=== PATIENT | female | born 1990 | race Hispanic/Latino ===

== ENCOUNTER 2018-09-10 12:05 | Day surgery (SDC) | payer BC ==
[2018-09-10 13:02] VITALS: BMI 31.2
--- NOTE | 2018-09-10 13:27 | PDOC.LDHP ---
Labor and Delivery H&P Chief complaint: other (pink mucus) HPI: 28 y/o at 40w3d, patient of Dr. Virgen, presents with pink tinged mucus this morning. Denies heavy VB, LOF, ctx, or decreased FM. ROS neg for HEENT, CV, pulm, GI, , neuro, psych, skin, musculoskeletal, or constitutional symptoms other than mentioned above. OB History Details: 2 prior term SVDs Current complications: other (ITP) Past Medical History: None Current medications: pre- vitamins, other (Prednisone) Previous surgical history: none Allergies/Adverse Reactions: Allergies Allergy/AdvReac Type Severity Reaction Status Date / Time No Known Allergies Allergy Verified 09/10/18 12:49 Social history: none - Physical Exam Vital signs reviewed and normal: yes General: NAD, resting Lungs: nonlabored breathing Abdomen: gravid Extremeties: no edema FHT: category 1 (130s, mod variability, + accels, no decels) [place] contractions every: 8-10 mins - Vaginal Exam cm dilated: 2 Effacement: 75% Station: -3 - Assessment 28 y/o at 40w3d with no e/o active labor. status reassuring with reactive NST. - Plan -: D/c home with precautions. Advised to keep all appointments and keep induction scheduled for Sunday.
== END 2018-09-10 13:51 | disposition home health service (06) ==
LOC: L&D/OP 12:05
PROVIDERS: ATTEND Obstetrics & Gynecology
DX: O99.89 Other specified diseases and conditions complicating pregnancy, childbirth and the puerperium (principal); N89.8 Other specified noninflammatory disorders of vagina; Z79.52 Long term (current) use of systemic steroids; Z79.899 Other long term (current) drug therapy; Z3A.40 40 weeks gestation of pregnancy
CPT/HCPCS: 99282

== ENCOUNTER 2018-09-11 11:26 | Inpatient (IN) | payer BC ==
[2018-09-11] MEDS ORDERED: Ibuprofen 800 MG TAB PO PRN (12:01)
[2018-09-11] MEDS ORDERED: Butorphanol Tartrate 1 MG/ML VIAL SLOW IVP PRN (12:01)
[2018-09-11] MEDS ORDERED: Methylergonovine 0.2 MG/ML VIAL IM PRN (12:01)
[2018-09-11] MEDS ORDERED: Ondansetron PF 4 MG/2 ML Vial IVP PRN (12:01)
[2018-09-11] MEDS ORDERED: Lidocaine 1% (PF) 30 ML VIAL SC PRN (12:01)
[2018-09-11] MEDS ORDERED: Carboprost 250 MCG/ML AMP IM PRN (12:01)
[2018-09-11] MEDS ORDERED: Acetaminophen 500 MG TAB PO PRN (12:01)
[2018-09-11] MEDS ORDERED: NS / Oxytocin 40 units/1000ml 1,000 ML IV PRN (12:01)
[2018-09-11] MEDS ORDERED: HYDROcodone/Acetaminophen 5/325 mg Tablet PO PRN ×2 (12:01→18:19)
[2018-09-11] MEDS ORDERED: Promethazine HCl 25 MG/ML VIAL IM PRN (12:01)
[2018-09-11] MEDS ORDERED: Diphenoxylate HCl/Atropine Tablet PO PRN (12:01)
[2018-09-11] MEDS ORDERED: Misoprostol 200 MCG TAB PR PRN (12:01)
[2018-09-11] MEDS ORDERED: Lactated Ringer's 1,000 ML IV SCH (12:15)
[2018-09-11 12:17] VITALS: BMI 32.9
[2018-09-11 12:48] LABS: Hemoglobin 15.2 g/dL (12.0-16.0); Mean Corpuscular HGB CONC 34.3 g/dL (32.0-36.0); Mean Corpuscular Hemoglobin 33.8 pg (27.0-31.0); Mean Corpuscular Volume 98.3 fL (78.0-98.0); Mean Platelet Volume 12.2 fL (7.4-10.4); Platelet Count 90 thou/uL (130-400); RBC Distribution Width 12.4 % (11.5-14.5); Red Blood Cell (RBC) Count 4.49 mill/uL (4.20-5.40); White Blood Cell (WBC) Count 6.6 thou/uL (4.8-10.8)
[2018-09-11 12:57] LABS: HBSAg Index 0.18 S/CO (0-0.99); HIV (1/2) Antibody/Antigen Non-Reactive (NonReactive); HIV 1/2 INDEX 0.04 S/CO (<1.00); Hep B Surf Ag Non-Reactive S/CO (NonReactive); Syphilis Antibody Nonreactive (Nonreactive); Syphilis Antibody Index 0.04 S/CO (<1.00 Non-Reactive)
[2018-09-11] MEDS ORDERED: Hydrocortisone Sod Succ/PF 100 mg/2 ml Vial ONE (13:29)
[2018-09-11] MEDS: Hydrocortisone Sod Succ/PF 100 mg/2 ml Vial IVP SCH ×2 (13:31→21:58)
--- NOTE | 2018-09-11 15:19 | PDOC.LDHP ---
Labor and Delivery H&P Chief complaint: contractions HPI: 28 yo @ 40w4d who presents in active labor. Anteparum course complicated by thrombocytopenia, presumed gestational vs ITP. On prednisone for thrombocytopenia. No LOF, VB. Current gestational age (weeks): 40 Due date: 09/07/18 Dating criteria: first trimester ultrasound Grav: 3 Para: 2 OB History Details: 2 term SVDs Current complications: other (Thrombocytopenia) Abnormal US findings: No Past Medical History: Denies Current medications: pre-delmi vitamins, other (Prednisone 40 mg QD) Previous surgical history: none Allergies/Adverse Reactions: Allergies Allergy/AdvReac Type Severity Reaction Status Date / Time No Known Allergies Allergy Verified 09/10/18 12:49 - Physical Exam Vital signs reviewed and normal: yes General: NAD Heart: RRR Lungs: nonlabored breathing Abdomen: gravid Extremeties: no edema FHT: category 1 [place] contractions every: q3-4 min - Vaginal Exam cm dilated: 7 (AROM scant clear fluid, cephalic ) Effacement: 90% Station: -1 - OB Labs Blood type: O RH: positive Antibody Screen: negative HIV: negative RPR: negative HEPSAg: negative 1 hour GCT: positive 3 hour GTT: wnl GBS: negative Urine drug screen: negative Rubella: immune - Assessment L&D Assessment: term patient in labor Thrombocytopenia - Plan Plan: admit to L&D, labor augmentation if indicated, informed consent obtained, anesthesia consult for pain management -: Hydrocortisone IV in labor, will taper after delivery.
--- NOTE | 2018-09-11 17:24 | PDOC.OPDEL ---
OB Operative/Delivery Note Delivery Dr/Surgeon: Sun Virgen DO Pre-Delivery Diagnosis: active labor Procedure/Post Delivery Dx: spontaneous vaginal delivery Weeks gestation: 40 Anesthesia: local - Findings A Sex: female - 1 min: 9 - 5 min: 9 - Additional Findings/Plan Placenta delivered: spontaneous Repaired Obstetrical Laceration: 2nd degree Estimated blood loss: QBL 49 mL Compilations/Other Findings: Infant in cephalic presentation, SUMMER position Normal appearing placenta Clear amniotic fluid Post delivery plan: routine recovery
[2018-09-11] MEDS ORDERED: Milk Of Magnesia 30 ML UDCUP PO PRN (18:19)
[2018-09-11] MEDS ORDERED: diphenhydrAMINE 25 MG CAP PO PRN (18:19)
[2018-09-11] MEDS ORDERED: Benzocaine/Menthol 20-0.5% 60 ML CAN TOP PRN (18:19)
[2018-09-11] MEDS ORDERED: Preparation H Ointment 28 GM TUBE PR PRN (18:19)
[2018-09-11] MEDS ORDERED: NS / Oxytocin 40 units/1000ml 1,000 ML IV SCH (18:19)
[2018-09-11] MEDS ORDERED: Bisacodyl 10 MG SUPP PR PRN (18:19)
[2018-09-11] MEDS: Ibuprofen 800 MG TAB PO SCH (21:58)
[2018-09-11] MEDS: Docusate Calcium (SURFAK) 240 MG CAP PO SCH (21:58)
[2018-09-12] MEDS: Hydrocortisone Sod Succ/PF 100 mg/2 ml Vial IVP SCH (05:56)
[2018-09-12] MEDS: Ibuprofen 800 MG TAB PO SCH ×2 (05:56→14:03)
[2018-09-12 07:15] LABS: Hemoglobin 14.4 g/dL (12.0-16.0); Mean Corpuscular HGB CONC 33.2 g/dL (32.0-36.0); Mean Corpuscular Volume 99.3 fL (78.0-98.0); Mean Platelet Volume 11.7 fL (7.4-10.4); Platelet Count 84 thou/uL (130-400); RBC Distribution Width 12.4 % (11.5-14.5); Red Blood Cell (RBC) Count 4.36 mill/uL (4.20-5.40); White Blood Cell (WBC) Count 12.1 thou/uL (4.8-10.8)
--- NOTE | 2018-09-12 08:19 | PDOC.PP ---
Post Progress Note Post Day #: 1 Subjective: No concerns. Doing well. breast feeding. Minimal lochia and pain. PO intake tolerated: yes Flatus: yes Ambulation: yes Vital Signs (12 hours) Temp Pulse Resp BP Pulse Ox 09/12/18 04:00 98.3 F 76 16 113/63 09/12/18 00:00 98.1 F 79 16 129/75 09/11/18 21:55 98.7 F 99 18 115/68 98 09/11/18 21:50 98.7 F 99 18 115/68 98 09/11/18 20:50 98.4 F 95 16 126/74 99 Weight Weight 186 lb - Physical Examination General: NAD Cardiovascular: RRR Respiratory: non-labored breathing Abdominal: no distention, appropriately TTP Fundus firm & at: below umbilicus Extremities: negative homans (B) Neurological: no gross focal deficits Psychiatric: A&Ox3, normal affect Result Diagrams: 09/12/18 06:39 Additional Labs: Post Labs Blood Type O POSITIVE 09/11/18 11:59 Hep Bs Antigen Non-Reactive S/CO (NonReactive) 09/11/18 11:59 (1) Vaginal delivery Code(s): O80 - ENCOUNTER FOR FULL-TERM UNCOMPLICATED DELIVERY Status: Acute (2) Thrombocytopenia Code(s): D69.6 - THROMBOCYTOPENIA, UNSPECIFIED Status: Acute - Assessment/Plan PPD1 VSSAF Plt stable. s/p IV steroids. Will taper oral steroids outpatient. Repeat CBC in 6 weeks. Stable for d/c home this PM with .
[2018-09-12] MEDS ORDERED: Prenatal Vitamin 1 TAB PO SCH (09:00)
[2018-09-12] MEDS: Docusate Calcium (SURFAK) 240 MG CAP PO SCH (09:14)
[2018-09-12 12:12] VITALS: TEMP 98.3
[2018-09-12 17:35] VITALS: BP 116/61
== END 2018-09-12 20:00 | disposition home or self-care (01) | DRG 807 ==
LOC: L&D 11:26 → 3SW 20:59
PROVIDERS: ADMIT Obstetrics & Gynecology; ATTEND Obstetrics & Gynecology
PROC: 10907ZC Drainage of Amniotic Fluid, Therapeutic from Products of Conception, Via Natural or Artificial Opening (ICD-10-PCS; principal; 2018-09-11)
PROC: 10E0XZZ Delivery of Products of Conception, External Approach (ICD-10-PCS; 2018-09-11)
PROC: 0KQM0ZZ Repair Perineum Muscle, Open Approach (ICD-10-PCS; 2018-09-11)
DX: O99.12 Other diseases of the blood and blood-forming organs and certain disorders involving the immune mechanism complicating childbirth (principal); Z37.0 Single live birth; D69.6 Thrombocytopenia, unspecified; Z3A.40 40 weeks gestation of pregnancy; O48.0 Post-term pregnancy; O70.1 Second degree perineal laceration during delivery
CPT/HCPCS: 36415; 85027; 86780; 86850; 86900; 86901; 87340; 87389; 99282; J0595; J1720; J2001; J2210